=== PATIENT | male | born 1965 | race Caucasian/White ===

== ENCOUNTER → 2018-01-10 | Outpatient (CLI) | payer BC, OTHER | LOC: CAT 01-05 15:11 | DX: R22.1 Localized swelling, mass and lump, neck (principal) ==

== ENCOUNTER → 2018-01-17 | Outpatient (CLI) | payer BC, OTHER ==
--- NOTE | ~2018-01-17 | PATH ---
[facility] [address] [place] [address] PATHOLOGY RPT PROCEDURE Name: ANASTACIO WHITE Gato Room #: REG [facility].#: [id number] Admission: 01/17/18 Date of : 63 Discharge: Report #: [id number] Path Case #: [id number] [facility] Accession Number: [id number] . 01 Material submitted: . RT PAROTID MASS . 01 Clinical history: . Right parotid mass . 02 Diagnosis: Right parotid mass, needle core biopsy: - Lesion comprised of myxoid stroma and epithelial/glandular cells, please see comment. . (IUV:basilia; 01/18/2018) QMS/01/18/2018 . 02 Comment: Examination shows mixed tumor comprised of myxoid stroma as well as glandular epithelial cells. Epithelial atypia or necrosis is not identified. Obvious mucin formation is not identified as well. 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 The differential diagnosis; however, includes a carcinoma ex pleomorphic adenoma or a partially sampled mucoepidermoid carcinoma. 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 Correlate clinically and follow-up as indicated. (IUV:basilia; 01/18/2018) . 02 Electronically signed: . Mulu Ruelas MD, Pathologist NPI- [id number] . 01 Gross description: . The specimen is received in formalin, labeled "Anastacio White, right neck", are several kumar-white needle cores and its fragments ranging from 0.1 cm up to 1.0 cm in length and up to 0.1 cm in diameter, entirely submitted in A1-A3. (SWS; 01/17/2018) SHS/SHS . 02 Pathologist provided ICD-10: K11.8 . 02 CPT . 572115 [address] [address] PATHOLOGY RPT PROCEDURE Name: ANASTACIO WHITE Gato Room #: REG CLI [facility].#: [id number] Admission: 01/17/18 Date of : 63 Discharge: Report #: [id number] Path Case #: [id number] Specimen Comment: A courtesy copy of this report has been sent to Specimen Comment: [phone]. Specimen Comment: Report sent to Performed at: [address], [place], [place] [id number] MD Jagdeep Juan MD Phone: [phone] Performed at: [address] [id number] MD Mulu Ruelas MD Phone: [phone]
== END | disposition home or self-care (01) ==
LOC: ULTRA 09:05
DX: K11.8 Other diseases of salivary glands (principal)